=== PATIENT | female | born 1975 | race Caucasian/White ===

== ENCOUNTER 2016-12-03 23:02 | Emergency (ER) | payer OTHER ==
--- NOTE | 2016-12-03 23:09 | PDOC ---
History of Present Illness - General Chief Complaint: Respiratory Stated Complaint: FEVER/BREAST CANCER Time Seen by Provider: 12/03/16 23:05 - History of Present Illness Initial Comments: this 41-year-old woman with a history of left-sided breast carcinoma, diagnosed approximately one month ago,currently undergoing preoperative AC chemotherapy for the last 2 weeks presents with fever to 101F measured approximately 7 PM tonight. Last chemotherapy was November 28.. The patient has had mild cough for several days(her family has similar upper respiratory infection symptoms.). The patient's 5-year-old son was diagnosed (through viral quick test done in pediatric office)with influenza 2 days ago. Patient denies sore throat, gastrointestinal symptoms,myalgias, malaise. Patient contacted her oncologist and coverage physician () suggested she come to the emergency room for full evaluation Past History - Past Medical History Allergies/Adverse Reactions: Allergies Allergy/AdvReac Type Severity Reaction Status Date / Time No Known Allergies Allergy Verified 12/03/16 23:39 Home Medications: Ambulatory Orders Oseltamivir Phosphate [Tamiflu] 75 mg PO BID #10 capsule 12/04/16 *Physical Exam - Physical Exam Comments: Adult female, alert and oriented 3, in no acute distress Vital signs as noted HEAD: No contusions, abrasions or lacerations of the scalp; no facial ecchymosis , deformities or tenderness EYES: Pupils equal, round and reactive to light, extraocular movements intact, sclera anicteric, conjunctiva clear PHARYNX: No erythema, exudate or edema; mucous membranes moist NECK: Supple, nontender, no masses or bruits LUNGS: Clear to auscultation bilaterally CARDIAC: S1, S2 normal; no extra sounds, rubs or murmurs heard ABDOMEN:Normoactive bowel sounds, nontender, no masses, no organomegaly EXTREMITIES: Normal range of motion, no edema,deformity or tenderness NEUROLOGICAL: Cranial nerves II through XII grossly intact. Normal speech, normal gait.moving all 4 extremities equally, Sensation intact in all extremities. PSYCH: Normal mood, normal affect. SKIN: Warm, Dry, normal turgor, no rashes or lesions noted. ED Treatment Course - LABORATORY CBC & Chemistry Diagram: 12/03/16 23:15 12/03/16 23:15 Progress Note - Progress Note Progress Note: laboratory evaluation reveals total white blood cell count of 2600 with 82% neutrophils/2% bands.This gives the patient a neutrophil count of approximately 2200. Remainder of the CBC and chemistry profile is essentially normal. lactic acid is normal at 0.739 Nasopharyngeal swab is positive for influenza A. Findings discussed with Dr. Helm : Patient is not neutropenic now, although White blood cell count may ezequiel in a few days. The patient can be treated withTamiflu 75 mg twice a day for 5 days. First dose of Tamiflu will be given in the emergency room. Patient should follow -up with her oncologist, Dr. Duong in the near future. She should return to the emergency room if she experiences severe symptoms or high fever. *DC/Admit/Observation/Transfer Diagnosis at time of Disposition: Influenza A - Discharge Dispostion Disposition: HOME Condition at time of disposition: Stable - Prescriptions Prescriptions: Oseltamivir Phosphate [Tamiflu] 75 mg PO BID #10 capsule - Referrals Referrals: Jeana Duong MD [Primary Care Provider] - 3 days - Patient Instructions Printed Discharge Instructions: Influenza Additional Instructions: tamiflu 75mg twice a day for [address] Duong within the next 2-3 days return to ER if you have high fever or severe cough/shortness of breath
[2016-12-03 23:30] LABS: PH,URINE 8.5 (4.5-8); URINE APPEARANCE Clear; URINE BILIRUBIN Negative (NEGATIVE); URINE BLOOD Trace-lysed (NEGATIVE); URINE GLUCOSE (UA) Negative (NEGATIVE); URINE KETONE Negative (NEGATIVE); URINE LEUK ESTERASE Trace (NEGATIVE); URINE NITRITE Negative (NEGATIVE); URINE PROTEIN Negative (NEGATIVE); URINE UROBILINOGEN 1.0 E.U/dl (0.2-1.0)
[2016-12-03 23:35] LABS: URINE COLOR YELLOW
[2016-12-03 23:36] LABS: MCH 29.6 pg (25.7-33.7); MCHC 33.8 g/dl (32.0-36.0); MEAN CELL VOLUME 87.5 fl (80-96); MEAN PLT VOLUME 8.1 fl (7.5-11.1); PLATELET COUNT 202 K/MM3 (134-434); RDW 12.4 % (11.6-15.6); WHITE BLOOD COUNT 2.6 K/mm3 (4.0-10.0)
[2016-12-03 23:44] LABS: ALBUMIN 4.3 g/dl (3.5-5.0); ALK PHOS 114 U/L (32-92); ANION GAP 6 (8-16); BILIRUBIN,TOTAL 0.7 mg/dl (0.2-1.0); CALCIUM 8.6 mg/dl (8.4-10.2); CO2 26 mmol/L (22-28); CREATININE 0.6 mg/dl (0.6-1.3); GLUCOSE,RANDOM 116 mg/dl (74-106); SGOT/AST 22 U/L (10-42); SGPT/ALT 17 U/L (10-40); TOT PROT 6.8 g/dl (6.4-8.3)
[2016-12-04 00:02] LABS: MICROCYTOSIS OCC
[2016-12-04 00:10] VITALS: BP 114/57; PULSE 95; TEMP 100.3; BMI 21.6
[2016-12-04] MEDS ORDERED: OSELTAMIVIR PHOSPHATE 75 MG CAPSULE ONE (01:40)
[2016-12-04] MEDS ORDERED: OSELTAMIVIR PHOSPHATE 75 MG CAPSULE PO ONE (01:48)
== END 2016-12-04 01:50 | disposition home or self-care (01) ==
LOC: FER 23:02
DX: C50.912 Malignant neoplasm of unspecified site of left female breast (principal); J09.X2 Influenza due to identified novel influenza A virus with other respiratory manifestations
CPT/HCPCS: 36415; 80053; 81003; 83605; 84703; 85025; 87040; 87804; 99282-25

== ENCOUNTER 2016-12-16 19:01 | Emergency (ER) | payer OTHER ==
[2016-12-16 19:09] VITALS: BMI 21.6
--- NOTE | 2016-12-16 19:32 | PDOC ---
History of Present Illness - General History Source: Patient Exam Limitations: No Limitations - History of Present Illness Initial Comments: 12/16/16 19:54 The patient is a 41 year old female, with a significant past medical history of left sided breast carcinoma diagnosed 1 month ago and is currently undergoing preoperative AC chemotherapy for the last 3 weeks, who presents to the emergency department with fever and cold-like symptoms. The patient reports that today she felt feverish and had a temperature of 101.6, she also reports congestion and a mild cough. The patient was present in the emergency department on 12/03/16 where she was diagnosed with influenza and had a 5 day course and Tamiflu, and she has been experiencing these cold-like symptoms, nasal, and chest congestion since. The patient reports that she had chemotherapy on Sunday and discussed her symptoms with her PCP who told her she should come to the ED for an evaluation. She denies sore throat, chest pain, shortness of breath, headache and dizziness. She denies chills, nausea, vomit, diarrhea and constipation. Allergies: None Social history: Never smoked PCP: Dr. Jeana Duong <Senia Rebolledo - Last Filed: 12/16/16 19:59> <Michelle Zuleta - Last Filed: 12/17/16 03:19> - General Chief Complaint: Cold Symptoms Stated Complaint: FEVER Time Seen by Provider: 12/16/16 19:09 Past History <Senia Rebolledo - Last Filed: 12/16/16 19:59> - Past Medical History Cancer: Yes (BREAST) - Psycho/Social/Smoking Cessation Hx Anxiety: No Suicidal Ideation: No Smoking History: Never smoked Have you smoked in the past 12 months: No Hx Alcohol Use: No Drug/Substance Use Hx: No Substance Use Type: None <Michelle Zuleta - Last Filed: 12/17/16 03:19> - Past Medical History Allergies/Adverse Reactions: Allergies Allergy/AdvReac Type Severity Reaction Status Date / Time No Known Allergies Allergy Verified 12/03/16 23:39 Home Medications: Ambulatory Orders Adriamycin - 12/16/16 Levofloxacin [Levaquin] 750 mg PO DAILY #9 tab 12/16/16 Review of Systems - Review of Systems Able to Perform ROS?: Yes Comments:: 12/16/16 19:54 CONSTITUTIONAL: +fever Absent: no chills, no fatigue EYES: Absent: visual changes ENT:+mild cough, +congestion Absent: ear pain, no sore throat CARDIOVASCULAR: Absent: chest pain, no palpitations RESPIRATORY: Absent: cough, no SOB GI: Absent: abdominal pain, no nausea, no vomiting, no constipation, no diarrhea GENITOURINARY: Absent: dysuria, no frequency, no hematuria MUSCULOSKELETAL: Absent: back pain, no arthralgia, no myalgia SKIN: Absent: rash <Senia Rebolledo - Last Filed: 12/16/16 19:59> *Physical Exam - Vital Signs Last Vital Signs Temp Pulse Resp BP Pulse Ox 99.2 F 107 H 16 118/64 99 12/16/16 19:07 12/16/16 19:07 12/16/16 19:07 12/16/16 19:07 12/16/16 19:07 - Physical Exam Comments: 12/16/16 19:55 GENERAL: The patient is awake, alert, and fully oriented, in no acute distress. HEAD:Normal with no signs of trauma. EYES: Pupils equal, round and reactive to light, extraocular movements intact, sclera anicteric, conjunctiva clear. ENT: +Scattered small whitish plaques of the soft palate and oropharynx EXTREMITIES: Normal range of motion, no edema. NEUROLOGICAL: Normal speech, normal gait. PSYCH: Normal mood, normal affect. SKIN: Warm, Dry, normal turgor, no rashes or lesions noted. <Senia Rebolledo - Last Filed: 12/16/16 19:59> - Vital Signs Last Vital Signs Temp Pulse Resp BP Pulse Ox 99.2 F 107 H 16 118/64 99 12/16/16 19:07 12/16/16 19:07 12/16/16 19:07 12/16/16 19:07 12/16/16 19:07 <Michelle Zuleta - Last Filed: 12/17/16 03:19> ED Treatment Course - LABORATORY CBC & Chemistry Diagram: 12/16/16 20:03 12/16/16 20:03 <Michelle Zuleta - Last Filed: 12/17/16 03:19> Medical Decision Making - Medical Decision Making Documentation has been prepared under my direction and personally reviewed by me in its entirety. I attest that this documented accurately reflects all work, treatment, procedures and medical decision making performed by me. As noted above, this 41-year-old woman with a history of breast carcinoma , currently receiving preoperative chemotherapy, presents with fever. Other than persistent nonproductive cough/nasal congestion since diagnosis of influenza A was made approximately 2 weeks ago, patient has no symptoms. Patient was told to come to the emergency room for lab tests to evaluate for neutropenia. CBC and chemistry profile sent. CBC reveals white blood cell count of 2300 with 92% neutrophils. This would indicate that her absolute neutrophil count is approximately 2100. Results discussed with oncology coverage from [facility], Dr. Tracie Cohen. Dr. Cohen suggested chest x-ray because of persistent cough. Chest x-ray (interpreted by Imaging application spec) reveals left lower lobe infiltrate and possible right lower lobe infiltrate. Wendy contacted and agrees to Levaquin for outpatient antibiotic coverage Results discussed with the patient. Patient will be started on Levaquin 750 mg daily for the next 10 days with first dose given here in the emergency room <Michelle Zuleta - Last Filed: 12/17/16 03:19> *DC/Admit/Observation/Transfer - Attestations Scribe Attestion: 12/16/16 19:55 Documentation prepared by KRYSTAL Cuevas, acting as medical apparatus model maker for Michelle Zuleta MD. <Senia Rebolledo - Last Filed: 12/16/16 19:59> <Michelle Zuleta - Last Filed: 12/17/16 03:19> Diagnosis at time of Disposition: Pneumonia Qualifiers: Pneumonia type: due to unspecified organism Laterality: left Lung location: lower lobe of lung Qualified Code(s): J18.9 - Pneumonia, unspecified organism - Discharge Dispostion Disposition: HOME Condition at time of disposition: Stable - Prescriptions Prescriptions: Levofloxacin [Levaquin] 750 mg PO DAILY #9 tab - Referrals Referrals: Jeana Duong MD [Primary Care Provider] - - Patient Instructions Printed Discharge Instructions: Pneumonia-Adult Additional Instructions: rest; drink plenty of fluids Levaquin 750 mg daily for 9 more days Follow-up with your doctor as scheduled Return to ER if you have shortness of breath/severe cough or persistent high fever
[2016-12-16 20:23] LABS: MCH 28.9 pg (25.7-33.7); MCHC 33.2 g/dl (32.0-36.0); MEAN PLT VOLUME 6.9 fl (7.5-11.1); PLATELET COUNT 281 K/MM3 (134-434); RDW 12.8 % (11.6-15.6); WHITE BLOOD COUNT 2.3 K/mm3 (4.0-10.0)
[2016-12-16 20:32] LABS: ALBUMIN 3.2 g/dl (3.5-5.0); ALK PHOS 87 U/L (32-92); ANION GAP 5 (8-16); BILIRUBIN,TOTAL 0.7 mg/dl (0.2-1.0); CALCIUM 8.4 mg/dl (8.4-10.2); CO2 27 mmol/L (22-28); CREATININE 0.4 mg/dl (0.6-1.3); GLUCOSE,RANDOM 132 mg/dl (74-106); SGOT/AST 16 U/L (10-42); SGPT/ALT 12 U/L (10-40); TOT PROT 5.7 g/dl (6.4-8.3)
[2016-12-16 21:02] LABS: HYPOCHROMIA RARE; MICROCYTOSIS 1+
[2016-12-16] MEDS ORDERED: LEVOFLOXACIN 250 MG TABLET (FP) PO ONE (23:37)
[2016-12-16 23:38] VITALS: BP 101/53; PULSE 92; TEMP 100
[2016-12-16] MEDS ORDERED: LEVOFLOXACIN 250 MG TABLET (FP) ONE (23:40)
[2016-12-16] MEDS ORDERED: LEVOFLOXACIN 500 MG TABLET (FP) ONE (23:40)
== END 2016-12-16 23:47 | disposition home or self-care (01) ==
LOC: FER 19:01
DX: J18.9 Pneumonia, unspecified organism (principal); C50.912 Malignant neoplasm of unspecified site of left female breast
CPT/HCPCS: 36415; 71020-TC; 80053; 85025; 99282-25

== ENCOUNTER 2017-03-14 17:20 | Emergency (ER) | payer OTHER ==
[2017-03-14 17:41] VITALS: BP 106/63; PULSE 109; TEMP 100.6; BMI 21.2
--- NOTE | 2017-03-14 18:01 | PDOC ---
[id number] No Limitations - History of Present Illness Initial Comments: 03/14/17 18:04 The patient is a 41 year old female, with a significant past medical history of left sided breast carcinoma currently undergoing chemotherapy at [facility] who presents to the emergency department with a fever. She reports today waking up after a nap, feeling a little warm, taking her temperature noting it to be 101.2. The patient also states having a taxol treatment at [facility] on Sunday and after having a low white count of 0.9, receiving two treatments of neupogen one on Sunday and one today. She denies recent chills, headache or dizziness. She denies recent nausea, vomit, diarrhea or constipation. She denies recent dysuria, frequency, urgency or hematuria. She denies recent chest pain or shortness of breath. Allergies: NKA Past surgical history: None reported. Social history: Nonsmoker. Denies EtOH use and recreational drug use. Primary Care Physician: Dr. Jeana Duong <Luc Hope - Last Filed: 03/14/17 18:04> <Terrence Rivera - Last Filed: 03/20/17 08:25> - General Chief Complaint: Respiratory Stated Complaint: FEVER Time Seen by Provider: 03/14/17 17:50 Past History <Luc Hope - Last Filed: 03/14/17 18:04> - Past Medical History Cancer: Yes (BREAST) - Psycho/Social/Smoking Cessation Hx Anxiety: No Suicidal Ideation: No Smoking History: Never smoked Have you smoked in the past 12 months: No Hx Alcohol Use: No Drug/Substance Use Hx: No Substance Use Type: None <Terrence Rivera - Last Filed: 03/20/17 08:25> - Past Medical History Allergies/Adverse Reactions: Allergies Allergy/AdvReac Type Severity Reaction Status Date / Time No Known Allergies Allergy Verified 03/14/17 17:30 Home Medications: Ambulatory Orders Levofloxacin [Levaquin -] 500 mg PO DAILY #7 tablet 03/14/17 Neupogen 03/14/17 Taxol 03/14/17 Review of Systems - Review of Systems Able to Perform ROS?: Yes Comments:: 03/14/17 18:04 CONSTITUTIONAL: +fever. Absent: chills, diaphoresis, generalized weakness, malaise, loss of appetite HEENT: Absent: rhinorrhea, nasal congestion, throat pain, throat swelling, difficulty swallowing, mouth swelling, ear pain, eye pain, visual Changes CARDIOVASCULAR: Absent: chest pain, syncope, palpitations, irregular heart rate, lightheadedness , peripheral edema RESPIRATORY: Absent: cough, shortness of breath, dyspnea with exertion, orthopnea, wheezing, stridor, hemoptysis GASTROINTESTINAL: Absent: abdominal pain, abdominal distension, nausea, vomiting, diarrhea, constipation, melena, hematochezia GENITOURINARY: Absent: dysuria, frequency, urgency, hesitancy, hematuria, flank pain, genital pain MUSCULOSKELETAL: Absent: myalgia, arthralgia, joint swelling SKIN: Absent: rash, itching, pallor HEMATOLOGIC/IMMUNOLOGIC: Absent: easy bleeding, easy bruising, lymphadenopathy, frequent infections ENDOCRINE: Absent: unexplained weight gain, unexplained weight loss, heat intolerance, cold intolerance NEUROLOGIC: Absent: headache, focal weakness or paresthesias, dizziness, unsteady gait, seizure, mental status changes, bladder or bowel incontinence PSYCHIATRIC: Absent: anxiety, depression, suicidal or homicidal ideation, hallucinations. <Luc Hope - Last Filed: 03/14/17 18:04> *Physical Exam - Vital Signs Last Vital Signs Temp Pulse Resp BP Pulse Ox 100.6 F H 109 H 15 106/63 100 03/14/17 17:22 03/14/17 17:22 03/14/17 17:22 03/14/17 17:22 03/14/17 17:22 - Physical Exam Comments: 03/14/17 18:04 GENERAL: Well developed, well nourished. Awake and alert. No acute distress. HEENT: Normocephalic, atraumatic. PERRLA, EOMI. No conjunctival pallor. Sclera are non- icteric. Moist mucous membranes. Oropharynx is clear. NECK: Supple. Full ROM. No JVD. Carotid pulses 2+ and symmetric, without bruits. No thyromegaly. No lymphadenopathy. CARDIOVASCULAR: Regular rate and rhythm. No murmurs, rubs, or gallops. Distal pulses are 2+ and symmetric. PULMONARY: No evidence of respiratory distress. Lungs clear to auscultation bilaterally. No wheezing, rales or rhonchi. ABDOMINAL: Soft. Non-tender. Non-distended. No rebound or guarding. No organomegaly. Normoactive bowel sounds. MUSCULOSKELETAL Normal range of motion at all joints. No bony deformities or tenderness. No CVA tenderness. EXTREMITIES: No cyanosis. No clubbing. No edema. No calf tenderness. SKIN: Warm and dry. Normal capillary refill. No rashes. No jaundice. NEUROLOGICAL: Alert, awake, appropriate. Cranial nerves 2-12 intact. No deficits to light touch and temperature in face, upper extremities and lower extremities. No motor deficits in the in face, upper extremities and lower extremities. Normoreflexic in the upper and lower extremities. Normal speech. Toes are down- going bilaterally. Gait is normal without ataxia. PSYCHIATRIC: Cooperative. Good eye contact. Appropriate mood and affect. <Luc Hope - Last Filed: 03/14/17 18:04> - Vital Signs Last Vital Signs Temp Pulse Resp BP Pulse Ox 100.6 F H 109 H 15 106/63 100 03/14/17 17:22 03/14/17 17:22 03/14/17 17:22 03/14/17 17:22 03/14/17 17:22 <Terrence Rivera - Last Filed: 03/20/17 08:25> ED Treatment Course - LABORATORY CBC & Chemistry Diagram: 03/14/17 18:20 03/14/17 18:20 <Terrence Rivera - Last Filed: 03/20/17 08:25> Medical Decision Making - Medical Decision Making 03/20/17 08:20 Patient undergoing chemotherapy prior to breast cancer resection. Began experiencing low-grade fever today 100.4. Asymptomatic. No complaint of headache , URI symptoms, sore throat, cough, chest pain, shortness of breath, abdominal pain, nausea, vomiting, diarrhea. Her white blood count was 0.9 on Sunday. She was advised to repeat her counts today. Physical exam is completely normal. The patient is alert cheerful and cooperative in no acute distress and completely asymptomatic. Her counts have rebounded, with normal white blood count, H&H, and platelets. Blood cultures and urine cultures were drawn. We are awaiting a urinalysis. Signed out to Dr. Kilgore 7 PM pending urinalysis and further evaluation and treatment. <Terrence Rivera - Last Filed: 03/20/17 08:25> *DC/Admit/Observation/Transfer - Attestations Scribe Attestion: 03/14/17 18:05 Documentation prepared by Luc Hope, acting as medical physiologist for Terrence Caballero MD. <Luc Hope - Last Filed: 03/14/17 18:04> <Terrence Rivera - Last Filed: 03/20/17 08:25> Diagnosis at time of Disposition: Fever - Discharge Dispostion Disposition: HOME Condition at time of disposition: Stable - Prescriptions Prescriptions: Levofloxacin [Levaquin -] 500 mg PO DAILY #7 tablet - Referrals Referrals: Jeana Duong MD [Primary Care Provider] - - Patient Instructions Printed Discharge Instructions: DI for Fever (Symptom) -- Adult Additional Instructions: Continue to monitor your fever Levaquin 500 mg once a day Call Dr. Duong tomorrow and follow-up as scheduled Return to ER if you have persistent high fever or develops cough or other new symptoms
[2017-03-14 18:53] LABS: MCH 32.8 pg (25.7-33.7); MCHC 35.4 g/dl (32.0-36.0); MEAN CELL VOLUME 92.6 fl (80-96); PLATELET COUNT 190 K/MM3 (134-434); WHITE BLOOD COUNT 5.3 K/mm3 (4.0-10.8)
[2017-03-14 18:57] LABS: ALBUMIN 4.3 g/dl (3.5-5.0); ALK PHOS 62 U/L (32-92); ANION GAP 10 (8-16); BILIRUBIN,TOTAL 1.1 mg/dl (0.2-1.0); CALCIUM 8.9 mg/dl (8.4-10.2); CO2 24 mmol/L (22-28); CREATININE 0.6 mg/dl (0.6-1.3); GLUCOSE,RANDOM 99 mg/dl (74-106); SGOT/AST 23 U/L (10-42); SGPT/ALT 25 U/L (10-40); TOT PROT 6.6 g/dl (6.4-8.3)
[2017-03-14 19:18] LABS: URINE APPEARANCE Clear; URINE BILIRUBIN Negative (NEGATIVE); URINE BLOOD Trace-intact (NEGATIVE); URINE COLOR YELLOW; URINE GLUCOSE (UA) Negative (NEGATIVE); URINE KETONE Negative (NEGATIVE); URINE LEUK ESTERASE Negative (NEGATIVE); URINE NITRITE Negative (NEGATIVE); URINE PROTEIN Negative (NEGATIVE); URINE UROBILINOGEN 0.2 E.U/dl (0.2-1.0)
--- NOTE | 2017-03-14 19:20 | PDOC ---
*Physical Exam - Vital Signs Last Vital Signs Temp Pulse Resp BP Pulse Ox 100.6 F H 109 H 15 106/63 100 03/14/17 17:22 03/14/17 17:22 03/14/17 17:22 03/14/17 17:22 03/14/17 17:22 ED Treatment Course - LABORATORY CBC & Chemistry Diagram: 03/14/17 18:20 03/14/17 18:20 - ADDITIONAL ORDERS Additional order review: Laboratory Results 03/14/17 03/14/17 18:45 18:20 Sodium 137 Potassium 3.8 Chloride 103 Carbon Dioxide 24 Anion Gap 10 BUN 5 L D Creatinine 0.6 D Creat Clearance w eGFR > 60 Random Glucose 99 D Calcium 8.9 Total Bilirubin 1.1 H D AST 23 D ALT 25 D Alkaline Phosphatase 62 D Total Protein 6.6 Albumin 4.3 D Urine Color Yellow Urine Appearance Clear Urine pH 7.0 Ur Specific [place] 1.015 Urine Protein Negative Urine Glucose (UA) Negative Urine Ketones Negative Urine Blood Trace-intact Urine Nitrite Negative Urine Bilirubin Negative Urine Urobilinogen 0.2 e.u/dl Ur Leukocyte Esterase Negative 03/14/17 18:20 RBC 3.61 MCV 92.6 MCHC 35.4 RDW 14.0 MPV 8.0 D Neutrophils % Y Lymphocytes % Y Medical Decision Making - Medical Decision Making 03/14/17 19:53 UA negative for evidence of UTI Case discussed with Dr. Aldrich who is covering for patient's oncologist, Dr. Duong. Dr Aldrich favors coverage with antibiotic in light of recent chemotherapy. Patient can be discharged with follow-up with Dr. Duong. Since she has had Levaquin in the past (prescribed in November after she presented here with fever and cough) and tolerated this well, she will be started on Levaquin 500 mg daily. First dose will be given here in the emergency room. *DC/Admit/Observation/Transfer Diagnosis at time of Disposition: Fever Qualifiers: Fever type: unspecified Qualified Code(s): R50.9 - Fever, unspecified - Discharge Dispostion Disposition: HOME Condition at time of disposition: Stable - Prescriptions Prescriptions: Levofloxacin [Levaquin -] 500 mg PO DAILY #7 tablet - Referrals Referrals: Jeana Duong MD [Primary Care Provider] - - Patient Instructions Printed Discharge Instructions: DI for Fever (Symptom) -- Adult Additional Instructions: Continue to monitor your fever Levaquin 500 mg once a day Call Dr. Duong tomorrow and follow-up as scheduled Return to ER if you have persistent high fever or develops cough or other new symptoms - Post Discharge Activity
[2017-03-14] MEDS ORDERED: LEVOFLOXACIN 500 MG TABLET (FP) PO ONE (19:50)
[2017-03-14] MEDS ORDERED: LEVOFLOXACIN 500 MG TABLET (FP) ONE (19:51)
== END 2017-03-14 19:58 | disposition home or self-care (01) ==
LOC: FER 17:20
DX: R50.9 Fever, unspecified (principal); Z92.21 Personal history of antineoplastic chemotherapy
CPT/HCPCS: 36415; 80053; 81003; 85025; 87040; 87086; 99281-25

== ENCOUNTER 2019-08-02 21:55 | Emergency (ER) | payer OTHER ==
[2019-08-02 22:03] VITALS: BP 117/54; PULSE 80; TEMP 100.3; BMI 20.7
--- NOTE | 2019-08-02 22:42 | PDOC ---
History of Present Illness - General Chief Complaint: Rash Stated Complaint: FEVER History Source: Patient Exam Limitations: No Limitations - History of Present Illness Initial Comments: 08/02/19 23:26 This is a 43-year-old female who comes in complaining of a rash/probable infection of her left arm and low-grade fever times one day. Patient has history significant for mastectomy with lymph node dissection on that side. Patient said that it started with some bumps this morning and they have progressed to a large area of erythema and discomfort on her lateral aspect of her left arm. Allergies: as per nursing notes Past Medical History: none Social history: Lives with family. No smoking. No alcohol. No illicit drugs. Surgical history: None General: No fevers or chills, no weakness, no weight loss HEENT: No change in vision. No sore throat,. No ear pain CardioVascular: no chest discomfort. No shortness of breath Respiratory:No cough, or wheezing. Gastrointestinal: no nausea, vomiting, diarrhea or constipation, No rectal bleeding Genitourinary: No dysuria, hematuria, or frequency Musculoskeletal: No joint or muscle pain or swelling Neurologic: No headache, vertigo, dizziness or loss of consciousness Psychiatric: nor depression Skin: No rashes or easy bruising Endocrine: no increased thirst or abnormal weight change Allergic: no skin or latex allergy All other systems reviewed and normal GENERAL: The patient is awake, alert, and fully oriented, in no acute distress. HEAD: Normal with no signs of trauma. EYES: Pupils equal, round and reactive to light, extraocular movements intact, sclera anicteric, conjunctiva clear. EXTREMITIES:atraumatic, Normal range of motion, no edema. Left upper extremity there is a area of erythema extending from mid forearm to mid upper arm. There is no ascending lymphangitis area is slightly tender to touch. Neurovascular is intact. NEUROLOGICAL: Normal speech, normal gait. PSYCH: Normal mood, normal affect. SKIN: Warm, Dry, normal turgor, no rashes or lesions noted. Assessment and plan: This is a 43-year-old female with a left arm cellulitis on the arm that is status post lymph node dissection. Patient given Banken Zosyn CBC and comp were done CBC had normal white count with no left shift. Patient given Tylenol here in the emergency room for fever. Patient discharged home with instructions to return if she is worse in 24 hours or not improved in 48 hours. Patient does have a primary care doctor to follow-up with \ Past History - Past Medical History Allergies/Adverse Reactions: Allergies Allergy/AdvReac Type Severity Reaction Status Date / Time No Known Allergies Allergy Verified 03/14/17 17:30 Home Medications: Ambulatory Orders Letrozole 2.5 mg PO DAILY 08/02/19 Sulfamethoxazole/Trimethoprim [Bactrim DS -] 1 tab PO BID #20 tablet 08/02/19 Cancer: Yes (BREAST) COPD: No - Suicide/Smoking/Psychosocial Hx Smoking History: Never smoked Have you smoked in the past 12 months: No Hx Alcohol Use: No Drug/Substance Use Hx: No Substance Use Type: None *Physical Exam - Vital Signs Last Vital Signs Temp Pulse Resp BP Pulse Ox 100.3 F H 80 16 117/54 L 98 08/02/19 21:58 08/02/19 21:58 08/02/19 21:58 08/02/19 21:58 08/02/19 21:58 ED Treatment Course - LABORATORY CBC & Chemistry Diagram: 08/02/19 22:50 08/02/19 22:50 *DC/Admit/Observation/Transfer Diagnosis at time of Disposition: Cellulitis Qualifiers: Site of cellulitis: extremity Site of cellulitis of extremity: upper extremity Laterality: left Qualified Code(s): L03.114 - Cellulitis of left upper limb - Discharge Dispostion Disposition: HOME Condition at time of disposition: Stable Decision to Admit order: No - Prescriptions Prescriptions: Sulfamethoxazole/Trimethoprim [Bactrim DS -] 1 tab PO BID #20 tablet - Referrals Referrals: Jeana Duong MD [Primary Care Provider] - - Patient Instructions Additional Instructions: Take Bactrim 1 tablet twice a day for the next 10 days. Return to the emergency Department if not improved in 48 hours or worse in 24 hours. Return to the emergency department immediately with ANY new, persistent or worsening symptoms. Continue any medications as previously prescribed by your physician. You should follow up with your primary doctor as soon as possible regarding today's emergency department visit. . Please make sure your doctor reviews the results of your emergency evaluation. Thank you for coming to the Emergency Department today for your care. It was a pleasure to see you today. Please note that your evaluation is INCOMPLETE until you follow-up with your doctor. - Post Discharge Activity
[2019-08-02 23:09] LABS: BASO % 0.5 % (0-2.0); EOS % 1.4 % (0-4.5); HEMATOCRIT 39.5 % (32.4-45.2); HEMOGLOBIN 13.4 GM/dl (10.7-15.3); LYMPH % 15.9 % (8-40); MCH 30.1 pg (25.7-33.7); MEAN CELL VOLUME 88.5 fl (80-96); MEAN PLT VOLUME 8.3 fl (7.5-11.1); MONO % 11.9 % (3.8-10.2); NEUT % 70.3 % (42.8-82.8); PLATELET COUNT 161 K/MM3 (134-434); RBC 4.47 M/mm3 (3.60-5.2); RDW 12.4 % (11.6-15.6); WHITE BLOOD COUNT 5.3 K/mm3 (4.0-10.8)
[2019-08-02] MEDS ORDERED: VANCOMYCIN 500 MG/100 ML PRE-DOCKED IVPB ONE (23:17)
[2019-08-02 23:18] LABS: ALBUMIN 4.1 g/dl (3.4-5.0); BILIRUBIN,TOTAL 0.9 mg/dl (0.2-1); CALCIUM 9.3 mg/dl (8.5-10); CREATININE 0.8 mg/dl (0.55-1.3); TOT PROT 6.5 g/dl (6.4-8.2)
[2019-08-02] MEDS ORDERED: PIPERACILLIN/TAZOB 3.375 GM 3.375 GM in DEXTROSE 5%-WATER - 50 ML IVPB ONE (23:18)
[2019-08-02] MEDS ORDERED: PIPERACILLIN/TAZOBACTAM 3.375 GM VIAL IVPB ONE (23:25)
[2019-08-02] MEDS ORDERED: VANCOMYCIN 1,000 MG VIAL (RESTRICTED TO ID ONLY) ONE (23:25)
[2019-08-02] MEDS ORDERED: ACETAMINOPHEN 500 MG TABLET (FP) PO ONE (23:29)
[2019-08-03] MEDS ORDERED: ACETAMINOPHEN 500 MG TABLET (FP) ONE (01:44)
== END 2019-08-03 01:47 | disposition home or self-care (01) ==
LOC: FER 21:55 → SUPCPDRO 21:55 → FER 08-03 01:47
DX: R21 Rash and other nonspecific skin eruption (principal); R50.9 Fever, unspecified; L03.114 Cellulitis of left upper limb; Z85.3 Personal history of malignant neoplasm of breast
CPT/HCPCS: 36415; 80053; 85025; 87040; 99283-25